=== PATIENT | female | born 1975 | race Caucasian/White ===

== ENCOUNTER 2019-05-28 20:21 | Emergency (ER) | payer OTHER ==
[2019-05-28 20:32] VITALS: BP 148/94; PULSE 68
[2019-05-28] MEDS ORDERED: Ondansetron 4 MG/2 ML SDV IVPUSH ONE (20:56)
[2019-05-28] MEDS ORDERED: LORazepam 2 MG/ML SDV IVPUSH ONE (20:57)
[2019-05-28] MEDS ORDERED: Haloperidol Lactate 5 MG/ML SDV IVPUSH ONE (20:58)
[2019-05-28] MEDS ORDERED: diphenhydrAMINE 50 MG/ML SDV IVPUSH ONE (20:58)
[2019-05-28] MEDS ORDERED: Sodium Chloride 0.9% 1,000 ML IV SCH (21:00)
--- NOTE | 2019-05-28 21:04 | EDM.PDOC ---
ED HPI GENERAL MEDICAL PROBLEM - General Chief Complaint: Headache Stated Complaint: MIGRAINE Time Seen by Provider: 05/28/19 20:22 Source of Information: Reports: Patient, Family History Limitations: Reports: No Limitations - History of Present Illness INITIAL COMMENTS - FREE TEXT/NARRATIVE: This is a 43-year-old female. She has a history of migraine headaches that she has 2-3 times a week. She normally takes Toradol for the headache. But she is also on tramadol for fibromyalgia and she takes about 60 tablets of tramadol a month for her fibromyalgia. She comes tonight because she says her head started hurting yesterday and it has flared up worse and worse and she comes to the ER for evaluation. She describes the headache is a severe pounding sensation in her front of her head going back to her ears. She has no aura with her migraines. She has been nauseated but she has not vomited. She denies any recent illnesses such as colds coughs fever or chills. When I walk into the room she has her eyes covered and she is crying. She says that her vision at times changes with her migraines and she has a hard time seeing but she is very sensitive to sound. Toradol for her migraines has not helped this time. 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 History: cervical dysplagia, LEEP procedure, , tubal ligation Neurological History: Reports: Migraines - Infectious Disease History Infectious Disease History: Reports: Chicken Pox - Past Surgical History HEENT Surgical History: Reports: Other (See Below) Other HEENT Surgeries/Procedures: facial surgery Female Surgical History: Reports: Hysterectomy, LEEP, Tubal Ligation Musculoskeletal Surgical History: Reports: Other (See Below) Other Musculoskeletal Surgeries/Procedures:: collar bone surgery Social & Family History - Family History Family Medical History: Noncontributory - Tobacco Use Smoking Status *Q: Current Every Day Smoker Years of Tobacco use: 15 Packs/Tins Daily: 0.5 - Caffeine Use Caffeine Use: Reports: Coffee - Recreational Drug Use Recreational Drug Use: No ED ROS GENERAL - Review of Systems Review Of Systems: See Below Constitutional: Denies: Fever, Chills HEENT: Reports: Other (Photo and phonophobia) Respiratory: Denies: Shortness of Breath, Cough Cardiovascular: Denies: Chest Pain Endocrine: Reports: No Symptoms GI/Abdominal: Reports: Nausea. Denies: Abdominal Pain, Diarrhea, Vomiting : Reports: No Symptoms Musculoskeletal: Denies: Neck Pain Skin: Reports: No Symptoms Neurological: Reports: Headache. Denies: Trouble Speaking, Difficulty Walking Psychiatric: Reports: Anxiety Hematologic/Lymphatic: Reports: No Symptoms - Physical Exam Exam: See Below Exam Limited By: No Limitations General Appearance: Alert, WD/WN, Mild Distress Eye Exam: Bilateral Eye: Normal Inspection, Other (Pupils are equal and reactive with mild photophobia) Ears: Normal External Exam, Normal Canal, Normal TMs Nose: Other (She has some nasal congestion from crying) Throat/Mouth: Normal Lips, Normal Voice, No Airway Compromise Head Exam: Normocephalic Neck: Supple, Other (She denies any neck pain) Respiratory/Chest: No Respiratory Distress, Lungs Clear, Normal Breath Sounds Cardiovascular: Regular Rate, Rhythm, No Murmur GI/Abdominal: Other (Any abdominal pain) Neuro Exam (Abbreviated): Alert, Oriented Back Exam: Full Range of Motion Extremities: Normal Inspection, Normal Range of Motion Psychiatric: Anxious, Tearful Skin Exam: Warm, Dry Course - Vital Signs Last Recorded V/S: Last Vital Signs Temp 97.5 F 05/28/19 20:29 Pulse 68 05/28/19 20:29 Resp 20 05/28/19 20:29 BP 148/94 H 05/28/19 20:29 Pulse Ox 94 L 05/28/19 20:29 - Orders/Labs/Meds Orders: Active Orders 24 hr Category Date Time Status Sodium Chloride 0.9% [Normal Saline] 1,000 ml Med 05/28/19 21:00 Active IV ASDIRECTED Medication Orders Sodium Chloride (Normal Saline) 1,000 mls @ 1,000 mls/hr IV ASDIRECTED TERRI Last Admin: 02/07/20 21:07 Dose: 1,000 mls/hr Meds: Medications Generic Name Dose Route Start Last Admin Trade Name Shira PRN Reason Stop Dose Admin Sodium Chloride 1,000 mls @ 1,000 mls/hr 05/28/19 21:00 05/28/19 21:07 Normal Saline IV 1,000 mls/hr ASDIRECTED TERRI Administration Discontinued Medications Generic Name Dose Route Start Last Admin Trade Name Shira PRN Reason Stop Dose Admin Diphenhydramine HCl 25 mg 05/28/19 20:58 05/28/19 21:09 Benadryl IVPUSH 05/28/19 20:59 25 mg ONETIME ONE Administration Haloperidol Lactate 2.5 mg 05/28/19 20:58 05/28/19 21:13 Haldol IVPUSH 05/28/19 20:59 2.5 mg ONETIME ONE Administration Lorazepam 0.5 mg 05/28/19 20:57 05/28/19 21:11 Ativan IVPUSH 05/28/19 20:58 0.5 mg ONETIME ONE Administration Ondansetron HCl 4 mg 05/28/19 20:56 05/28/19 21:07 Zofran IVPUSH 05/28/19 20:57 4 mg ONETIME ONE Administration - Re-Assessments/Exams Free Text/Narrative Re-Assessment/Exam: 05/28/19 22:19 Patient is sleeping peacefully. I did wake her up and she says her headache is much better and she wants to go home. I spoke to her daughter indicating that soon as she gets home put her to bed have her take her headache medicine before she goes to bed and keep her in a dark room and let her sleep as long as she needs to. I did suggest she follow-up with her family doctor regarding the tramadol as a possible cause of the headaches since that is 1 of the side effects of tramadol. Departure - Departure Time of Disposition: 22:20 Disposition: Home, Self-Care 01 Condition: Fair Clinical Impression: Nausea Migraine headache Qualifiers: Migraine type: unspecified Status migrainosus presence: without status migrainosus Intractability: not intractable Qualified Code(s): G43.909 - Migraine, unspecified, not intractable, without status migrainosus - Discharge Information *PRESCRIPTION DRUG MONITORING PROGRAM REVIEWED*: Yes *COPY OF PRESCRIPTION DRUG MONITORING REPORT IN PATIENT MARTÍN: No Instructions: Migraine Headache, [id number] Referrals: Mildred Jernigan PA-C [Primary Care Provider] - Forms: ED Department Discharge Additional Instructions: When you get home take your headache medicine and then go to bed in a dark room and sleep as long as you can, follow-up with your family doctor regarding the tramadol as possibly a source of your continued headaches as this is a common side effect for tramadol, There might be a different medication she can give you for your fibromyalgia, continue with lots of fluids tomorrow and water to stay well-hydrated since this will help your headaches, return to the ER as needed Sepsis Event Note - Evaluation Sepsis Screening Result: No Definite Risk - Focused Exam Vital Signs: Vital Signs Temp Pulse Resp BP Pulse Ox 05/28/19 20:29 97.5 F 68 20 148/94 H 94 L Date Exam was Performed: 05/28/19 Time Exam was Performed: 22:19 - My Orders Last 24 Hours: My Active Orders 05/28/19 21:00 Sodium Chloride 0.9% [Normal Saline] 1,000 ml IV ASDIRECTED - Assessment/Plan Last 24 Hours: My Active Orders 05/28/19 21:00 Sodium Chloride 0.9% [Normal Saline] 1,000 ml IV ASDIRECTED
== END 2019-05-28 22:30 | disposition home or self-care (01) ==
LOC: JD.ED 20:21
DX: G43.909 Migraine, unspecified, not intractable, without status migrainosus (principal); R11.0 Nausea; F17.210 Nicotine dependence, cigarettes, uncomplicated; Z88.5 Allergy status to narcotic agent
CPT/HCPCS: 96361; 96374; 96375; 99283; J1200; J1630; J2060; J2405; J7030

== ENCOUNTER 2019-11-28 14:06 | Emergency (ER) | payer OTHER ==
[2019-11-28 14:22] VITALS: BP 148/96; PULSE 74
[2019-11-28] MEDS ORDERED: Sodium Chloride 0.9% 10 ML Syringe FLUSH PRN (14:30)
[2019-11-28] MEDS ORDERED: Sodium Chloride 0.9% 1,000 ML IV ONE (14:30)
[2019-11-28] MEDS ORDERED: Ketorolac 30 MG/ML SDV IVPUSH ONE (14:30)
[2019-11-28] MEDS ORDERED: Metoclopramide 10 MG/2 ML SDV IVPUSH ONE (14:30)
[2019-11-28] MEDS ORDERED: diphenhydrAMINE 50 MG/ML SDV IVPUSH ONE (14:30)
--- NOTE | 2019-11-28 14:38 | EDM.PDOC ---
ED HPI GENERAL MEDICAL PROBLEM - General Chief Complaint: Headache Stated Complaint: MIGRAINE Time Seen by Provider: 11/28/19 14:19 Source of Information: Reports: Patient, RN Notes Reviewed History Limitations: Reports: No Limitations - History of Present Illness INITIAL COMMENTS - FREE TEXT/NARRATIVE: Patient is a 44-year-old female who presents to the ED for evaluation of her headache. Patient notes she has a history of migraines. She has been prescribed Imitrex in the past, but is recently given ketorolac for management. She states she took a 10 mg tablet at 8 AM this morning, without much relief. Patient notes that the migraine started at around 6 AM. Patient states that this is a typical migraine for her, but does seem a little bit worse than some of them that she has had recently, she states she has not had a headache like this in about 1-1/2 years. She notes she is light sensitive, sound sensitive, she is not seeing spots or any changes in her vision. She denies fever/chills, cough/shortness of breath. She is having some nausea, and states she was not able to keep much down for fluids. She denies any diarrhea. Patient's primary care provider is Vale Jernigan. 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: cervical dysplagia, LEEP procedure, , tubal ligation Neurological History: Reports: Migraines - Infectious Disease History Infectious Disease History: Reports: Chicken Pox - Past Surgical History HEENT Surgical History: Reports: Other (See Below) Other HEENT Surgeries/Procedures: facial surgery Female Surgical History: Reports: Hysterectomy, LEEP, Tubal Ligation Musculoskeletal Surgical History: Reports: Other (See Below) Other Musculoskeletal Surgeries/Procedures:: collar bone surgery Social & Family History - Family History Family Medical History: Noncontributory - Tobacco Use Smoking Status *Q: Current Every Day Smoker Years of Tobacco use: 16 Packs/Tins Daily: 0.5 - Caffeine Use Caffeine Use: Reports: Coffee - Recreational Drug Use Recreational Drug Use: No ED ROS GENERAL - Review of Systems Review Of Systems: Comprehensive ROS is negative, except as noted in HPI. - Physical Exam Exam: See Below Exam Limited By: No Limitations General Appearance: Alert, WD/WN, No Apparent Distress Eye Exam: Bilateral Eye: EOMI, Normal Inspection, PERRL Ears: Normal External Exam Nose: Normal Inspection Throat/Mouth: Normal Inspection Head Exam: Atraumatic Neck: Normal Inspection Respiratory/Chest: No Respiratory Distress, Lungs Clear, Normal Breath Sounds, No Accessory Muscle Use, Chest Non-Tender Cardiovascular: Normal Peripheral Pulses, Regular Rate, Rhythm, No Murmur GI/Abdominal: Normal Bowel Sounds, Soft, Non-Tender, No Distention, No Mass Neuro Exam (Abbreviated): Alert, Oriented, Normal Cognition, No Motor/Sensory Deficits Extremities: Normal Inspection, Normal Capillary Refill Psychiatric: Normal Affect, Normal Mood Skin Exam: Warm, Dry, Intact, Normal Color, No Rash Course - Vital Signs Last Recorded V/S: Last Vital Signs Temp 97.9 F 11/28/19 14:19 Pulse 74 11/28/19 14:19 Resp 20 11/28/19 14:19 BP 148/96 H 11/28/19 14:19 Pulse Ox 96 11/28/19 14:19 - Orders/Labs/Meds Orders: Active Orders 24 hr Category Date Time Status Peripheral IV Care [RC] . DIRECTED Care 11/28/19 14:30 Ordered Sodium Chloride 0.9% [Saline Flush] Med 11/28/19 14:30 Ordered 10 ml FLUSH ASDIRECTED PRN Peripheral IV Insertion Adult [OM.PC] Routine Oth 11/28/19 14:30 Ordered Medication Orders Sodium Chloride (Saline Flush) 10 ml FLUSH ASDIRECTED PRN PRN Reason: Keep Vein Open Last Admin: 11/28/19 14:52 Dose: 10 ml Documented by: HERMMIC Labs: Laboratory Tests 11/28/19 Range/Units 14:36 Sodium 138 (136-145) mEq/L Potassium 3.8 (3.5-5.1) mEq/L Chloride 103 (98-107) mEq/L Carbon Dioxide 26 (21-32) mEq/L Anion Gap 12.8 (5-15) BUN 10 (7-18) mg/dL Creatinine 0.7 (0.55-1.02) mg/dL Est Cr Clr Drug Dosing 72.72 mL/min Estimated GFR (MDRD) > 60 (>60) mL/min BUN/Creatinine Ratio 14.3 (14-18) Glucose 117 H (74-106) mg/dL Calcium 8.9 (8.5-10.1) mg/dL Total Bilirubin 0.3 (0.2-1.0) mg/dL AST 13 L (15-37) U/L ALT 20 (14-59) U/L Alkaline Phosphatase 59 (46-116) U/L Total Protein 7.5 (6.4-8.2) g/dl Albumin 4.0 (3.4-5.0) g/dl Globulin 3.5 gm/dL Albumin/Globulin Ratio 1.1 (1-2) Meds: Medications Generic Name Dose Route Start Last Admin Trade Name Freq PRN Reason Stop Dose Admin Sodium Chloride 10 ml 11/28/19 14:30 11/28/19 14:52 Saline Flush FLUSH 10 ml ASDIRECTED PRN Administration Keep Vein Open Discontinued Medications Generic Name Dose Route Start Last Admin Trade Name Freq PRN Reason Stop Dose Admin Diphenhydramine HCl 25 mg 11/28/19 14:30 11/28/19 14:46 Benadryl IVPUSH 11/28/19 14:31 25 mg ONETIME ONE Administration Sodium Chloride 1,000 mls @ 999 mls/hr 11/28/19 14:30 11/28/19 14:46 Normal Saline IV 11/28/19 15:30 999 mls/hr ASDIRECTED ONE Administration Ketorolac Tromethamine 30 mg 11/28/19 14:30 11/28/19 14:46 Toradol IVPUSH 11/28/19 14:31 30 mg ONETIME ONE Administration Metoclopramide HCl 10 mg 11/28/19 14:30 11/28/19 14:46 Reglan IVPUSH 11/28/19 14:31 10 mg ONETIME ONE Administration - Re-Assessments/Exams Free Text/Narrative Re-Assessment/Exam: 11/28/19 14:44 Patient presents to the ED for evaluation of a headache. Will repeat Toradol, give her IV Reglan, Benadryl, IV fluids, and get a CMP, as she states she has not been able to keep any fluids down. 11/28/19 15:38 Patient was reassessed at bedside, states she is feeling much better, is willing to go home at this time. We will discharge her home, metabolic panel is unremarkable. Departure - Departure Time of Disposition: 15:39 Disposition: Home, Self-Care 01 Condition: Good Clinical Impression: Headache Qualifiers: Headache type: unspecified Headache chronicity pattern: acute headache Intractability: not intractable Qualified Code(s): R51 - Headache - Discharge Information *PRESCRIPTION DRUG MONITORING PROGRAM REVIEWED*: No *COPY OF PRESCRIPTION DRUG MONITORING REPORT IN PATIENT MARTÍN: No Instructions: Migraine Headache, [id number] Referrals: Mildred Jernigan PA-C [Primary Care Provider] - Forms: ED Department Discharge Additional Instructions: You were evaluated in the ED for your headache. You were given a combination of medications and IV fluid for management. This did seem to provide you pretty good relief of your symptoms. Recommend that you go home and rest in a quiet, darkened room. Try also to keep well hydrated. Please return to the ED if your symptoms should change or worsen. Sepsis Event Note (ED) - Evaluation Sepsis Screening Result: No Definite Risk - Focused Exam Vital Signs: Vital Signs Temp Pulse Resp BP Pulse Ox 11/28/19 14:19 97.9 F 74 20 148/96 H 96 - My Orders Last 24 Hours: My Active Orders 11/28/19 14:30 Peripheral IV Care [RC] . DIRECTED Sodium Chloride 0.9% [Saline Flush] 10 ml FLUSH ASDIRECTED PRN Peripheral IV Insertion Adult [OM.PC] Routine - Assessment/Plan Last 24 Hours: My Active Orders 11/28/19 14:30 Peripheral IV Care [RC] . DIRECTED Sodium Chloride 0.9% [Saline Flush] 10 ml FLUSH ASDIRECTED PRN Peripheral IV Insertion Adult [OM.PC] Routine
== END 2019-11-28 15:55 | disposition home or self-care (01) ==
LOC: JD.ED 14:06
DX: R51 Headache (principal); F17.210 Nicotine dependence, cigarettes, uncomplicated; Z90.710 Acquired absence of both cervix and uterus; Z88.5 Allergy status to narcotic agent
CPT/HCPCS: 36415; 80053; 96374; 96375; 99283; J1200; J1885; J2765; J7030

== ENCOUNTER 2021-03-20 00:05 | Emergency (ER) | payer OTHER ==
[2021-03-20 00:30] VITALS: BP 184/109; PULSE 69
[2021-03-20] MEDS ORDERED: Ketorolac 30 MG/ML SDV IVPUSH STA (03:09)
[2021-03-20] MEDS ORDERED: Ondansetron 4 MG/2 ML SDV IVPUSH ONE (03:09)
[2021-03-20] MEDS ORDERED: HYDROmorphone 0.5 MG/0.5 ML Syringe IVPUSH ONE (03:09)
[2021-03-20] MEDS ORDERED: Sodium Chloride 0.9% 1,000 ML IV SCH (03:15)
--- NOTE | 2021-03-20 03:15 | EDM.PDOC ---
ED HPI GENERAL MEDICAL PROBLEM - General Chief Complaint: Flank Pain Stated Complaint: ABD PAIN/VOMITING Time Seen by Provider: 03/20/21 02:52 Source of Information: Reports: Patient History Limitations: Reports: No Limitations - History of Present Illness INITIAL COMMENTS - FREE TEXT/NARRATIVE: Mrs. Fisher is a a very pleasant 45-year-old woman who now presents to the ED stating that she developed left flank pain radiating to her left abdomen last 03/10/2021. She was seen by her PCP at the walk-in clinic one week ago today, on 03/13/2021. She states that x-rays were performed, but no blood work. She states that she was told that the x-rays demonstrated inflammation of her organs, and that her pain was due to to something wrong with her ribs. She was prescribed prednisone twice a day, which she took until yesterday, 03/19/2021. She does not recall the dosage. She was instructed to go to the ED if she developed nausea or vomiting. The patient states that the left flank pain has continued, despite using a heating pad, taking warm baths, and taking ibuprofen 800 mg daily. She states that she developed nausea and vomiting around 23:00 last night, 03/19/2021. The patient last ate around 2100 last night. Here in the ED this morning, the patient's initial BP is found to be elevated at 184/109, otherwise, she is hemodynamically stable, afebrile, saturating 99% on room air. She appears to be comfortable, in no acute distress. The patient denies having a recent fever, chills, sore throat, ear pain, nasal or sinus congestion, cough, dyspnea, chest pain, palpitations, constipation, diarrhea, abdominal pain, urinary symptoms, recent weight gain or weight loss, recent bloody bowel movements or black bowel movements, recent joint aches, headaches, or rashes. The patient's PCP is MARE Martinez. Her Qa Manager is Dr. Vicenta Maldonado. She has not received a COVID vaccination, nor an influenza vaccination this season. 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 History: Reports: Endometriosis Psychiatric History: Reports: Depression, Other (See Below) (Fibromyalgia) - Infectious Disease History Infectious Disease History: Reports: Chicken Pox - Past Surgical History HEENT Surgical History: Reports: Other (See Below) (Facial surgery) Female Surgical History: Reports: Hysterectomy (partial), LEEP, Tubal Ligation Social & Family History - Tobacco Use Tobacco Use Status *Q: Current Every Day Tobacco User Years of Tobacco use: 29 Packs/Tins Daily: 0.4 Packs/Tins Daily Comment: Down from 1 ppd Tobacco Use Comment: Started smoking 1991 - Caffeine Use Caffeine Use: Reports: Coffee - Alcohol Use Alcohol Use History: No - Recreational Drug Use Recreational Drug Use: No - Living Situation & Occupation Living situation: Reports: , with Spouse, with Family (Daughter + grandson) Occupation: Employed ([employer]) ED ROS GENERAL - Review of Systems Review Of Systems: Comprehensive ROS is negative, except as noted in HPI. ED EXAM, GI/ABD - Physical Exam Exam: See Below Exam Limited By: No Limitations General Appearance: Alert, No Apparent Distress (initially found sleeping), Thin Eyes: Bilateral: Normal Appearance, EOMI Ears: Normal External Exam, Hearing Grossly Normal Nose: Normal Inspection Throat/Mouth: Normal Inspection, Normal Lips, Normal Voice, No Airway Compromise Head: Atraumatic, Normocephalic Neck: Normal Inspection, Full Range of Motion Respiratory/Chest: No Respiratory Distress, Lungs Clear, Normal Breath Sounds, No Accessory Muscle Use Cardiovascular: Normal Peripheral Pulses, Regular Rate, Rhythm, No Edema, No Gallop, No JVD, No Murmur, No Rub GI/Abdominal Exam: Normal Bowel Sounds, Soft, No Organomegaly, No Distention, No Abnormal Bruit, No Mass, Tender (Across the entire lower abdomen. Nontender to the upper abdomen.) Back Exam: Normal Inspection, Full Range of Motion, CVA Tenderness (L). No: CVA Tenderness (R) Extremities: Normal Inspection, Normal Range of Motion, No Pedal Edema, Normal Capillary Refill Neurological: Alert, Oriented, Normal Cognition, No Motor/Sensory Deficits Psychiatric: Normal Affect Skin Exam: Warm, Dry, Intact, Normal Color, No Rash Course - Vital Signs Last Recorded V/S: Last Vital Signs Temp 37.0 C 03/20/21 00:23 Pulse 69 03/20/21 00:23 Resp 17 03/20/21 00:23 BP 184/109 H 03/20/21 00:23 Pulse Ox 99 03/20/21 00:23 - Orders/Labs/Meds Labs: Laboratory Tests 03/20/21 03/20/21 03/20/21 Range/Units 00: 00:30 03:30 WBC 16.96 H (3.98-10.04) K/mm3 RBC 4.84 (3.98-5.22) M/mm3 Hgb 14.4 (11.2-15.7) gm/dl Hct 43.8 (34.1-44.9) % MCV 90.5 (79.4-94.8) fl MCH 29.8 (25.6-32.2) pg MCHC 32.9 (32.2-35.5) g/dl RDW Std Deviation 45.7 (36.4-46.3) fL Plt Count 342 D (182-369) K/mm3 MPV 10.1 (9.4-12.3) fl Neutrophils % (Manual) 73 H (40-60) % Band Neutrophils % 0 (0-10) % Lymphocytes % (Manual) 14 L (20-40) % Atypical Lymphs % 4 % Monocytes % (Manual) 9 (2-10) % Eosinophils % (Manual) 0 L (0.7-5.8) % Basophils % (Manual) 0 L (0.1-1.2) Platelet Estimate Adequate RBC Morph Comment Normal Sodium 137 (136-145) mEq/L Potassium 3.7 (3.5-5.1) mEq/L Chloride 102 (98-107) mEq/L Carbon Dioxide 27 (21-32) mEq/L Anion Gap 11.7 (5-15) BUN 16 (7-18) mg/dL Creatinine 0.6 (0.55-1.02) mg/dL Est Cr Clr Drug Dosing 77.91 mL/min Estimated GFR (MDRD) > 60 (>60) mL/min BUN/Creatinine Ratio 26.7 H (14-18) Glucose 107 H (70-99) mg/dL Calcium 8.7 (8.5-10.1) mg/dL Total Bilirubin 0.3 (0.2-1.0) mg/dL AST 23 (15-37) U/L ALT 14 (14-59) U/L Alkaline Phosphatase 46 (46-116) U/L Total Protein 6.8 (6.4-8.2) g/dl Albumin 3.6 (3.4-5.0) g/dl Globulin 3.2 gm/dL Albumin/Globulin Ratio 1.1 (1-2) Lipase 129 (73-393) U/L Urine Color Yellow (Yellow) Urine Appearance Slt cloudy H (Clear) Urine pH 7.0 (5.0-8.0) Ur Specific Denhoff 1.025 (1.005-1.030) Urine Protein Trace H (Negative) Urine Glucose (UA) Negative (Negative) Urine Ketones Negative (Negative) Urine Occult Blood Trace-intact H (Negative) Urine Nitrite Negative (Negative) Urine Bilirubin Negative (Negative) Urine Urobilinogen 0.2 (0.2-1.0) Ur Leukocyte Esterase Negative (Negative) Urine RBC 5-10 H (0-5) /hpf Urine WBC 0-5 (0-5) /hpf Ur Squamous Epith Cells 0-5 (0-5) /hpf Urine Bacteria Few (FEW) /hpf Urine Mucus Few (FEW) /hpf Meds: Medications Discontinued Medications Generic Name Dose Route Start Last Admin Trade Name Freq PRN Reason Stop Dose Admin Hydromorphone HCl 0.5 mg 03/20/21 03:09 03/20/21 03:29 Hydromorphone 0.5 Mg/0.5 Ml Syringe IVPUSH 03/20/21 03:10 0.5 mg ONETIME ONE Administration Sodium Chloride 1,000 mls @ 150 mls/hr 03/20/21 03:15 03/20/21 03:26 Normal Saline IV 150 mls/hr ASDIRECTED TERRI Administration Ketorolac Tromethamine 30 mg 03/20/21 03:09 03/20/21 03:27 Ketorolac 30 Mg/Ml Sdv IVPUSH 03/20/21 03:10 30 mg ONETIME STA Administration Ondansetron HCl 4 mg 03/20/21 03:09 03/20/21 03:26 Ondansetron 4 Mg/2 Ml Sdv IVPUSH 03/20/21 03:10 4 mg ONETIME ONE Administration Tamsulosin HCl 0.4 mg 03/20/21 03:09 03/20/21 07:05 Tamsulosin 0.4 Mg Cap.Er PO 03/20/21 03:10 Not Given ONETIME ONE - Re-Assessments/Exams Free Text/Narrative Re-Assessment/Exam: 03/20/21 03:10 The patient's history strongly suggests a left ureterolith, however, on examination, she reports tenderness across her entire lower abdomen, as well as left CVA tenderness. This introduces the possibility of an intra-abdominal pr ocess. A CBC, CMP, and lipase were ordered at triage. I have added a urinalysis and a CT of the abdomen and pelvis with oral and IV contrast. In the meantime, the patient will be treated with IV Dilaudid, oral tamsulosin, IV fluid, IV Toradol, and IV Zofran. The patient's CBC is remarkable for leukocytosis of 16.96, but with 0% bandemia, and the remainder of her CBC being unremarkable. Her CMP is remarkable for slight hyperglycemia of 107, and is otherwise unremarkable. Her lipase level is within normal limits at 129. 03/20/21 04:43 The patient's urinalysis is unremarkable. 03/20/21 06:07 CT of the abdomen and pelvis with oral and IV contrast is read by [facility] as: 1. Thick-walled appearance of the gastric antrum, suggesting gastritis. 2. Mild prominence of the common bile duct at 10 mm with very mild intrahepatic biliary ductal dilatation. Correlate as to any possible biliary obstruction and consider dedicated evaluation, such as MRI/MRCP. 3. 2.7 cm simple right adnexal cyst. 03/20/21 06:18 Test results discussed with the patient. Unfortunately, today's work-up does not indicate the cause of her pain. It does suggest that she may have some biliary duct abnormality, but that would not cause left-sided pain. I recommended that she discontinue the prednisone, then follow-up with her PCP for further evaluation, that could include an ultrasound of the right upper esme drant, a HIDA scan, or, as the Radiologist had suggested, an MRI/MRCP. Departure - Departure Time of Disposition: 06:20 Disposition: Home, Self-Care 01 Condition: Good Clinical Impression: Left flank pain, Nausea & vomiting - Discharge Information *PRESCRIPTION DRUG MONITORING PROGRAM REVIEWED*: Not Applicable *COPY OF PRESCRIPTION DRUG MONITORING REPORT IN PATIENT MARTÍN: Not Applicable Instructions: Abdominal Pain, Adult Referrals: Mildred Jernigan PA-C [Primary Care Provider] - Vicenta Maldonado MD [Physician] - Forms: ED Department Discharge Additional Instructions: You were seen in the emergency room for left flank pain radiating to your lower left abdomen since last Friday, along with nausea and vomiting. Work-up in the ER included several blood tests, a urinalysis, and a CT of your abdomen and pelvis with oral and IV contrast. Your white blood cell count was found to be modestly elevated, due to the prednisone you are on. There is no sign of an infection. The CT scan indicated that you may have a problem with your biliary duct, however, that is on your right side, and would not be the cause of your symptoms. Unfortunate, we are unable to tell you the cause of your pain, however, does not appear to be due to anything serious. There is no sign of a kidney stone. Going forward, we recommend that discontinue the prednisone. We recommend that you follow-up with your PCP, MARE Perkins, for further evaluation, that could include an ultrasound of your upper right abdomen, a HIDA scan, or, as the Radiologist had suggested, an MRI/MRCP. If any other problems, please do not hesitate to return to the ER. Sepsis Event Note (ED) - Evaluation Sepsis Screening Result: No Definite Risk
[2021-03-20] MEDS: Tamsulosin 0.4 MG Cap.ER PO ONE ×2 (03:30→07:05)
--- NOTE | 2021-03-20 07:14 | CT ---
CT abdomen and pelvis Technique: Multiple axial sections were obtained from above the dome of the diaphragm inferiorly through the pubic symphysis. Intravenous and oral contrast were utilized. Delayed images were also obtained through the bladder. Reconstructed coronal and sagittal images were obtained. Comparison: No prior abdominal or pelvic CT study is available. Findings: Visualized lung bases show nothing acute. Liver contains a small low density lesion next to the ligamentum teres fissure which is incidental. Spleen is normal. Stomach shows focal wall thickening within the antrum raising the possibility of gastritis. Common bile duct is slightly prominent measuring 1.0 cm. Kidneys show symmetric contrast enhancement with no hydronephrosis or mass. Adrenal glands show no nodule. Pancreas shows no discrete abnormality. Abdominal aorta shows no aneurysm. No retroperitoneal adenopathy is seen. No mesenteric abnormalities are seen. Appendix is seen which is normal in size. Increased stool is seen within the right colon and transverse colon. No pelvic mass or adenopathy is seen. 2.5 cm cyst is noted within the right ovary most likely representing a dominant follicle. Delayed images were obtained which show contrast within the bladder. Bone window settings were reviewed which appear within normal limits for the patient's age. Impression: 1. Increased stool within the right colon and transverse region. 2. Mildly dilated common bile duct at 1.0 cm. Ultrasound could be obtained to further evaluate. 3. Wall thickening within the stomach antrum suspicious for gastritis. 4. Dominant follicle within the right ovary. Diagnostic code #3 I agree with preliminary report from [facility], finalized on 03/20/21, 7:00 AM COKE WHEELER, code 1
== END 2021-03-20 06:39 | disposition home or self-care (01) ==
LOC: JD.ED 00:05
DX: R10.9 Unspecified abdominal pain (principal); R11.2 Nausea with vomiting, unspecified; Z88.5 Allergy status to narcotic agent; Z72.0 Tobacco use
CPT/HCPCS: 36415; 74177; 80053; 81001; 83690; 85007; 85027; 96374; 96375; 99284; J1170; J1885; J2405; J7030; A9270-GY

== ENCOUNTER 2021-03-21 02:09 | Emergency (ER) | payer OTHER ==
[2021-03-21 02:30] VITALS: BP 169/117; PULSE 98
[2021-03-21] MEDS ORDERED: Sodium Chloride 0.9% 1,000 ML IV ONE (02:49)
[2021-03-21] MEDS ORDERED: Ondansetron 4 MG/2 ML SDV IVPUSH ONE ×2 (02:49→04:06)
[2021-03-21] MEDS ORDERED: HYDROmorphone 1 MG/ML Syringe IVPUSH ONE (03:42)
--- NOTE | 2021-03-21 03:45 | EDM.PDOC ---
ED HPI GENERAL MEDICAL PROBLEM - General Chief Complaint: Abdominal Pain Stated Complaint: VOMITING/WEAK Time Seen by Provider: 03/21/21 02:28 Source of Information: Reports: Patient, Old Records (ED visit 03/19/2021) History Limitations: Reports: No Limitations - History of Present Illness INITIAL COMMENTS - FREE TEXT/NARRATIVE: Mrs. Fisher is a pleasant 45-year-old woman who now returns to the ED with a complaint of continued abdominal pain, nausea, and vomiting. I saw her in this ED yesterday morning, 03/20/2021, after she developed left flank pain radiating to her left abdomen last 03/10/2021. She had been seen by her PCP at the walk-in clinic on 03/13/2021. She reported that x-rays were performed, but no blood work. She reported that she was told that the x-rays demonstrated inflammation of her organs, and that her pain was due to to something wrong with her ribs. She was prescribed prednisone twice a day, which she took until this past 03/19/2021. She did not recall the dosage. She was instructed to go to the ED if she developed nausea or vomiting. She reported to the ED stating that the left flank pain had continued, despite using a heating pad, taking warm baths, and taking ibuprofen 800 mg daily. She reported that she had developed nausea and vomiting around 23:00 Friday night 03/19/2021. Work-up included several blood tests, a urinalysis, and a CT of the abdomen and pelvis with oral and IV contrast. Her CBC was remarkable for mild leukocytosis of 16.96, but with 0% bandemia, most likely due to the prednisone that she had just been on. The CT scan noted a thick walled appearance to the gastric antrum, suggesting gastritis, although clinically, the patient did not have gastritis. It also noted mild prominence of the common bile duct at 10 mm with very mild intrahepatic biliary ductal dilatation. The radiologist recommended a follow-up MRI/MRCP. Lastly, the CT also found a 2.7 cm simple right adnexal cyst. None of these findings explained the patient's symptoms. She was discharged home with the recommendation that she discontinue the prednisone and follow-up with her PCP for further evaluation, that could include an ultrasound of the right upper quadrant, a HIDA scan, or, as the Radiologist had suggested, an MRI/MRCP. After the patient was discharged yesterday morning, she stated that she called her PCP, and has an appointment to be seen tomorrow, , at 10 AM. Here in the ED this morning, the patient's initial BP is found to be elevated at 169/117, with slight tachypnea of 24 rpm. She is afebrile, saturating 95% on room air. She appears to be slightly uncomfortable, although in no acute distress. The patient denies having a recent fever, chills, sore throat, ear pain, nasal or sinus congestion, cough, dyspnea, chest pain, palpitations, constipation, diarrhea, abdominal pain, urinary symptoms, recent weight gain or weight loss, recent bloody bowel movements or black bowel movements, recent joint aches, headaches, or rashes. The patient's PCP is MARE Martinez. Her Hoister is Dr. Vicenta Maldonado. She has not received a COVID vaccination, nor an influenza vaccination this season. 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 Psychiatric History: Reports: Depression, Other (See Below) (Fibromyalgia) - Infectious Disease History Infectious Disease History: Reports: Chicken Pox - Past Surgical History HEENT Surgical History: Reports: Other (See Below) (Facial surgery) Female Surgical History: Reports: Hysterectomy (partial), LEEP, Tubal Ligation Social & Family History - Tobacco Use Tobacco Use Status *Q: Current Every Day Tobacco User Years of Tobacco use: 29 Packs/Tins Daily: 0.4 Packs/Tins Daily Comment: Down from 1 ppd Tobacco Use Comment: Started smoking 1991 - Caffeine Use Caffeine Use: Reports: Coffee - Alcohol Use Alcohol Use History: No - Recreational Drug Use Recreational Drug Use: No - Living Situation & Occupation Living situation: Reports: , with Spouse, with Family (Daughter + grandson) Occupation: Employed ([employer]) ED ROS GENERAL - Review of Systems Review Of Systems: Comprehensive ROS is negative, except as noted in HPI. ED EXAM, GI/ABD - Physical Exam Exam: See Below Exam Limited By: No Limitations General Appearance: Alert, WD/WN, Mild Distress (appears uncomfortable) Eyes: Bilateral: Normal Appearance, EOMI Ears: Normal External Exam, Hearing Grossly Normal Nose: Normal Inspection Throat/Mouth: Normal Inspection, Normal Lips, Normal Voice, No Airway Compromise Head: Atraumatic, Normocephalic Neck: Normal Inspection, Full Range of Motion Respiratory/Chest: No Respiratory Distress, Lungs Clear, Normal Breath Sounds, No Accessory Muscle Use, Chest Non-Tender Cardiovascular: Normal Peripheral Pulses, Regular Rate, Rhythm, No Edema, No Gallop, No JVD, No Murmur, No Rub GI/Abdominal Exam: Normal Bowel Sounds, Soft, No Organomegaly, No Distention, No Abnormal Bruit, No Mass, Pelvis Stable, Tender (generalized, non-focal) Back Exam: Normal Inspection, Full Range of Motion, NT Extremities: Normal Inspection, Normal Range of Motion, No Pedal Edema, Normal Capillary Refill Neurological: Alert, Oriented, Normal Cognition, No Motor/Sensory Deficits Psychiatric: Normal Affect Skin Exam: Warm, Dry, Intact, Normal Color, No Rash Course - Vital Signs Last Recorded V/S: Last Vital Signs Temp 37.3 C 03/21/21 02:25 Pulse 98 03/21/21 02:25 Resp 24 H 03/21/21 02:25 BP 169/117 H 03/21/21 02:25 Pulse Ox 95 03/21/21 02:25 - Orders/Labs/Meds Meds: Medications Discontinued Medications Generic Name Dose Route Start Last Admin Trade Name Freq PRN Reason Stop Dose Admin Hydromorphone HCl 1 mg 03/21/21 03:42 03/21/21 04:02 Hydromorphone 1 Mg/Ml Syringe IVPUSH 03/21/21 03:43 1 mg ONETIME ONE Administration Sodium Chloride 1,000 mls @ 999 mls/hr 03/21/21 02:49 03/21/21 02:54 Normal Saline IV 03/21/21 03:49 999 mls/hr ONETIME ONE Administration Ondansetron HCl 4 mg 03/21/21 02:49 03/21/21 02:54 Ondansetron 4 Mg/2 Ml Sdv IVPUSH 03/21/21 02:50 4 mg ONETIME ONE Administration Ondansetron HCl 4 mg 03/21/21 04:06 03/21/21 04:12 Ondansetron 4 Mg/2 Ml Sdv IVPUSH 03/21/21 04:07 4 mg ONETIME ONE Administration - Re-Assessments/Exams Free Text/Narrative Re-Assessment/Exam: 03/21/21 03:42 A bolus of IV fluid and IV Zofran were ordered at triage. I have added IV Dilaudid. Because she just had an extensive work-up done about 24 hours ago, I do not see an indication to repeat these tests, however, I will endeavor to get the patient's symptoms under control. 03/21/21 06:14 The patient states that she is feeling well enough to go home. I will discharge her with an [facility] prescription for Zofran ODT. She is to follow-up with her PCP at her previously scheduled appointment tomorrow, , 03/22/2021, at 10 AM. Departure - Departure Time of Disposition: 06:15 Disposition: Home, Self-Care 01 Condition: Good Clinical Impression: Left flank pain, Nausea & vomiting - Discharge Information *PRESCRIPTION DRUG MONITORING PROGRAM REVIEWED*: Not Applicable *COPY OF PRESCRIPTION DRUG MONITORING REPORT IN PATIENT MARTÍN: Not Applicable Instructions: Nausea, Adult, Nausea and Vomiting, Adult Referrals: Mildred Jernigan PA-C [Primary Care Provider] - Vicenta Maldonado MD [Physician] - Forms: ED Department Discharge Additional Instructions: You were seen in the emergency room for persistent left flank pain with nausea and vomiting. A work-up performed yesterday did not reveal the cause of your pain. You were treated with IV fluid, IV Dilaudid, and IV Zofran in the ER, with improvement of your symptoms. A prescription for the antinausea medicine Zofran ODT has been provided to you via [facility]. You may dissolve 1 tablet of Zofran ODT on your tongue up to every 8 hours, as needed for nausea/vomiting. You may take your own prescription of tramadol as needed for pain. Please follow-up with your PCP, MARE Martinez, at your previously scheduled appointment tomorrow, , 03/22/2021, for further evaluation that could include an ultrasound of your upper right abdomen, a HIDA scan, or, as the Radiologist has suggested, an MRI/MRCP. If any other problems, please do not hesitate to return to the ER. Sepsis Event Note (ED) - Evaluation Sepsis Screening Result: No Definite Risk
== END 2021-03-21 06:30 | disposition home or self-care (01) ==
LOC: JD.ED 02:09
DX: R10.9 Unspecified abdominal pain (principal); R11.2 Nausea with vomiting, unspecified; Z88.5 Allergy status to narcotic agent; Z72.0 Tobacco use
CPT/HCPCS: 96374; 96375; 96376; 99283; J1170; J2405; J7030

== ENCOUNTER 2021-04-05 08:41 | Day surgery (SDC) | payer OTHER ==
--- NOTE | 2021-04-05 07:09 | PCM.PREANE ---
<Anel Piña - Last Filed: 04/05/21 09:11> Preanesthetic Assessment - Anesthesia/Transfusion/Family Hx Anesthesia History: Prior Anesthesia Without Reaction Family History of Anesthesia Reaction: No Transfusion History: No Prior Transfusion(s) Intubation History: Unknown - Review of Systems General: No Symptoms Pulmonary: Cough Cardiovascular: No Symptoms Gastrointestinal: Abdominal Pain Neurological: No Symptoms Other: Reports: Anxiety (pt states BP is elevated d/t anxiety, will treat and monitor prior to proceeding with case) - Physical Assessment ASA Class: 2 Mental Status: Alert & Oriented x3 Dentition: Reports: Dentures ROM/Head Extension: Full Lungs: Clear to Auscultation, Normal Respiratory Effort Cardiovascular: Regular Rate, Regular Rhythm, No Murmurs - Allergies Allergies/Adverse Reactions: Allergies Allergy/AdvReac Type Severity Reaction Status Date / Time bee venom protein (honey bee) Allergy Severe Itching Verified 04/05/21 08:33 feathers Allergy Severe Itching Verified 04/05/21 08:33 hydrocodone AdvReac Severe Vomiting Verified 04/05/21 08:33 - Acknowledgements Anesthesia Type Planned: MAC Pt an Appropriate Candidate for the Planned Anesthesia: Yes Alternatives and Risks of Anesthesia Discussed w Pt/Guardian: Yes Pt/Guardian Understands and Agrees with Anesthesia Plan: Yes PreAnesthesia Questionnaire - HOME MEDS Home Medications: Home Meds Ketorolac [Toradol] 10 mg PO Q6H PRN 05/28/19 [History] traMADol [Ultram] 50 mg PO Q6H PRN 05/28/19 [History] Aspirin/Acetaminophen/Caffeine [Excedrin Migraine Caplet] 1 tab PO ASDIRECTED PRN 04/05/21 [History] Ibuprofen 800 mg PO ASDIRECTED PRN 04/05/21 [History] Metaxalone 800 mg PO ASDIRECTED 04/05/21 [History] Omeprazole Magnesium [Prilosec Otc] 40 mg PO BID 04/05/21 [History] Sucralfate [Carafate] 1 gm PO ASDIRECTED PRN 04/05/21 [History] <Leslie Corey - Last Filed: 04/05/21 14:44> Preanesthetic Assessment - Procedure Proposed Procedure: EGD - Anesthesia/Transfusion/Family Hx Anesthesia History: Prior Anesthesia Without Reaction Family History of Anesthesia Reaction: No Transfusion History: No Prior Transfusion(s) Intubation History: Unknown - Review of Systems General: No Symptoms Pulmonary: Cough (smoker cough) Cardiovascular: No Symptoms Gastrointestinal: Abdominal Pain Neurological: No Symptoms Other: Reports: Anxiety - Physical Assessment NPO Status Date: 04/04/21 NPO Status Time: 23:55 Vital Signs: BP 139/100 HR 84 99.2 RR 16 93% RA Height: 1.52 m Weight: 39.6 kg ASA Class: 2 Mental Status: Alert & Oriented x3 Dentition: Reports: Dentures (on bottom) Thyro-Mental Finger Breadths: 2 Mouth Opening Finger Breadths: 2 ROM/Head Extension: Full Lungs: Normal Respiratory Effort, Wheezing Cardiovascular: Regular Rate, Regular Rhythm, No Murmurs - Acknowledgements Anesthesia Type Planned: MAC Pt an Appropriate Candidate for the Planned Anesthesia: Yes Alternatives and Risks of Anesthesia Discussed w Pt/Guardian: Yes Pt/Guardian Understands and Agrees with Anesthesia Plan: Yes PreAnesthesia Questionnaire HEENT History: Reports: Allergic Rhinitis, Other (See Below) Other HEENT History: wears dentures Cardiovascular History: Reports: None Respiratory History: Reports: Asthma Gastrointestinal History: Reports: GERD Genitourinary History: Reports: None [employer] History: Reports: Endometriosis, Other OB/BYN History: cervical dysplagia, LEEP procedure, , tubal ligation Musculoskeletal History: Reports: Back Pain, Chronic, Fibromyalgia Neurological History: Reports: Migraines Psychiatric History: Reports: Anxiety Endocrine/Metabolic History: Reports: None Hematologic History: Reports: None Immunologic History: Reports: None Oncologic (Cancer) History: Reports: None Dermatologic History: Reports: None - Infectious Disease History Infectious Disease History: Reports: Chicken Pox - Past Surgical History HEENT Surgical History: Reports: Other (See Below) Other HEENT Surgeries/Procedures: facial surgery Cardiovascular Surgical History: Reports: None Female Surgical History: Reports: Hysterectomy, LEEP, Tubal Ligation Musculoskeletal Surgical History: Reports: Other (See Below) Other Musculoskeletal Surgeries/Procedures:: collar bone surgery - SUBSTANCE USE Tobacco Use Status *Q: Current Every Day Tobacco User Tobacco Use Within Last Twelve Months: Cigarettes Second Hand Smoke Exposure: No Days Per Week of Alcohol Use: 0 Number of Drinks Per Day: 0 Total Drinks Per Week: 0 Recreational Drug Use History: No - CURRENT (IN HOUSE) MEDS Current Meds: Current Medications Lactated Ringer's (Ringers, Lactated) 1,000 mls @ 125 mls/hr IV ASDIRECTED TERRI Stop: 04/05/21 23:00 Lidocaine/Sodium Bicarbonate (Lidocaine 1%/Sod Bicarbonate In Ns 8.4% 1 Ml Syringe) 0.25 ml IDERM ONETIME PRN PRN Reason: Prior to IV Start Stop: 04/05/21 18:00 Sodium Chloride (Sodium Chloride 0.9% 10 Ml Syringe) 10 ml FLUSH ASDIRECTED PRN PRN Reason: Keep Vein Open Stop: 04/05/21 18:00 Discontinued Medications Fentanyl (Fentanyl 100 Mcg/2 Ml Sdv) Confirm Administered Dose 100 mcg .ROUTE .STK-MED ONE Stop: 04/05/21 08:51 Lidocaine HCl (Xylocaine-Mpf 1%) Confirm Administered Dose 4 mls @ as directed .ROUTE .STK-MED ONE Stop: 04/05/21 08:09 Midazolam HCl (Midazolam 1 Mg/Ml 2 Ml Sdv) Confirm Administered Dose 2 mg .ROUTE .STK-MED ONE Stop: 04/05/21 08:50 Propofol (Propofol 200 Mg/20 Ml Sdv) Confirm Administered Dose 200 mg .ROUTE .STK-MED ONE Stop: 04/05/21 08:09
[~2021-04-05 08:41] MED LIST: Lactated Ringers 1,000 ML IV SCH; Lidocaine 1% 4 ML ONE; Lidocaine 1%/Sod Bicarbonate in NS 8.4% 1 ML Syringe IDERM PRN; Propofol 200 MG/20 ML SDV ONE; Sodium Chloride 0.9% 10 ML Syringe FLUSH PRN
[2021-04-05] MEDS ORDERED: Midazolam 1 MG/ML 2 ML SDV ONE (08:49)
[2021-04-05] MEDS ORDERED: fentaNYL 100 MCG/2 ML SDV ONE (08:50)
--- NOTE | 2021-04-05 09:49 | PCM.PRNOTE ---
- Free Text/Narrative Note: Date: 04/05/2021 Procedure: diagnostic esophagogastroduodenoscopy Indication: clinical presentation of peptic ulcer disease with correlating CT imaging Endoscopist: Zaid Simeon MD Findings: normal duodenum. Single large type III peptic ulcer with cratered, clean white slough in center and surrounding regenerative epithelium, anterior stomach with a few centimeters of the pylorus. Moderate size sliding hiatal hernia with minor Schatzki ring. Detailed Report: The patient was taken to the endoscopy suite and placed in left lateral decubitus position. Timeout was performed and monitored anesthesia care was initiated. A bite-block was placed and the endoscope was inserted in the mouth. The scope was advanced to the distal duodenum with ease. Duodenum appeared grossly normal. A biopsy of mucosa from the duodenal bulb was obtained with cold forceps. The scope was withdrawn into the stomach. Anteriorly and in close proximity to the pylorus was a large cratered peptic ulcer. The base appeared clean and white. There was no evidence of associated hemorrhage. The gastric mucosa around the ulcer was heaped up and relatively erythematous. Several biopsies of the area including the interface of the white fibrous tissue and surrounding mucosa were obtained with cold forceps. No other ulceration or lesion was noted within the stomach. On retroflexion, a moderate sized sliding hiatal hernia was appreciated. The scope was withdrawn into the herniated stomach which appeared normal. There appeared to be Schatzki ring which was minor and not creating any significant stenosis near the gastroesophageal junction. A biopsy just proximal to this was obtained with cold forceps. Air was suctioned from the stomach prior to withdrawal of the scope. The remainder of the esophagus appeared normal. The patient tolerated the procedure well.
--- NOTE | 2021-04-05 09:57 | PCM48HPAN ---
Post Anesthesia Note - EVALUATION WITHIN 48HRS OF ANESTHETIC Vital Signs in Normal Range: Yes Patient Participated in Evaluation: Yes Respiratory Function Stable: Yes Airway Patent: Yes Cardiovascular Function Stable: Yes Hydration Status Stable: Yes Pain Control Satisfactory: Yes Nausea and Vomiting Control Satisfactory: Yes Mental Status Recovered: Yes
[2021-04-05 18:25] VITALS: BP 132/87; PULSE 89
== END 2021-04-05 10:26 | disposition home or self-care (01) ==
LOC: JD.SDS 08:41
PROVIDERS: ATTEND Surgery
DX: K31.89 Other diseases of stomach and duodenum (principal); K25.9 Gastric ulcer, unspecified as acute or chronic, without hemorrhage or perforation; G43.909 Migraine, unspecified, not intractable, without status migrainosus; M79.7 Fibromyalgia; F41.9 Anxiety disorder, unspecified; F17.210 Nicotine dependence, cigarettes, uncomplicated; Z91.030 Bee allergy status; Z88.5 Allergy status to narcotic agent; Z79.82 Long term (current) use of aspirin; Z79.899 Other long term (current) drug therapy; Z98.890 Other specified postprocedural states
CPT/HCPCS: 43239; J2250; J2704; J3010; J7120; 00731

== ENCOUNTER 2022-02-18 19:07 | Emergency (ER) | payer OTHER ==
[2022-02-18] MEDS ORDERED: Ketorolac 30 MG/ML SDV IVPUSH ONE (20:02)
[2022-02-18] MEDS ORDERED: diphenhydrAMINE 50 MG/ML SDV IVPUSH ONE (20:02)
[2022-02-18] MEDS ORDERED: Sodium Chloride 0.9% 1,000 ML IV ONE (20:02)
[2022-02-18] MEDS ORDERED: Metoclopramide 10 MG/2 ML SDV IVPUSH ONE (20:02)
[2022-02-18] MEDS ORDERED: Sodium Chloride 0.9% 10 ML Syringe FLUSH PRN (20:02)
[2022-02-18 22:26] VITALS: BP 148/99; PULSE 76
== END 2022-02-18 22:48 | disposition home or self-care (01) ==
LOC: JD.ED 19:07
DX: G43.909 Migraine, unspecified, not intractable, without status migrainosus (principal); J45.909 Unspecified asthma, uncomplicated; K21.9 Gastro-esophageal reflux disease without esophagitis; Z91.048 Other nonmedicinal substance allergy status; Z91.030 Bee allergy status; Z79.899 Other long term (current) drug therapy
CPT/HCPCS: 96361; 96374; 96375; 99283; J1200; J1885; J2765; J3490; J7030